=== PATIENT | male | born 1955 | race Caucasian/White ===

== ENCOUNTER 2020-03-04 07:28 | Day surgery (SDC) | payer BC, MEDICARE ==
[2020-03-01 10:00] VITALS: BP 154/93
[2020-03-01 11:11] LABS: ALANINE AMINOTRANSFERASE 42 U/L (12-78); ANION GAP 6 mmol/L (5-15); CHLORIDE 109 mmol/L (98-107); CREATININE 1.14 mg/dL (0.7-1.3)
[2020-03-01 11:13] LABS: ALKALINE PHOSPHATASE 61 U/L (45-117); BILIRUBIN,TOTAL 0.3 mg/dL (0.2-1.0); TOTAL PROTEIN 7.2 g/dL (6.4-8.2)
[~2020-03-04] VITALS: Ht 177.8 cm; Wt 113.0 kg
[~2020-03-04 07:28] MED LIST: ALBU8.5H8 INH; BUPIVACAINE/PF 0.5% ONE; BYDUREON; EPINEPHRINE 1 MG/ML, 1ML ONE; EZET10TA70 PO; FENOFIBRATE; JARDIANCE; LISINOPRIL; METFORMIN; NORTRIPTYLINE; OMEPRAZOLE
[2020-03-04] MEDS ORDERED: LACTATED RINGERS 1,000 ML IV SCH (08:00)
[2020-03-04] MEDS ORDERED: CHLORHEXIDINE 15 ML UDC MM ONE (08:00)
[2020-03-04] MEDS ORDERED: SCOPOLAMINE 1MG PATCH TD ONE ×2 (09:02→09:05)
[2020-03-04] MEDS ORDERED: ACETAMINOPHEN 500 MG TABLET PO STA (09:02)
[2020-03-04] MEDS ORDERED: ACETAMINOPHEN 500 MG TABLET ONE (09:05)
[2020-03-04] MEDS ORDERED: FENTANYL PF 250 MCG/5ML ONE (09:13)
[2020-03-04] MEDS ORDERED: MIDAZOLAM 1 MG/ML, 2ML ONE (09:13)
[2020-03-04] MEDS ORDERED: CEFAZOLIN 1,000 MG ONE (09:20)
[2020-03-04] MEDS ORDERED: NEOSTIGMINE 1 MG/ML, 10ML ONE (09:20)
[2020-03-04] MEDS ORDERED: ROCURONIUM 10 MG/ML,10ML ONE (09:20)
[2020-03-04] MEDS ORDERED: GLYCOPYRROLATE 0.2MG/1ML, 5ML ONE (09:20)
[2020-03-04] MEDS ORDERED: ONDANSETRON 2MG/ML, 2ML ONE (09:20)
[2020-03-04] MEDS ORDERED: PROPOFOL 10 MG/ML, 20ML ONE (09:20)
[2020-03-04] MEDS ORDERED: DEXAMETHASONE 4 MG/ML, 1ML ONE (09:20)
[2020-03-04] MEDS ORDERED: ONDANSETRON 2MG/ML, 2ML IVPush PRN (10:00)
[2020-03-04] MEDS ORDERED: MEPERIDINE/PF 25MG/0.5ML IVPush PRN (10:00)
[2020-03-04] MEDS ORDERED: DIPHENHYDRAMINE 50 MG/ML, 1ML IVPush PRN (10:00)
[2020-03-04] MEDS ORDERED: HYDROmorphone 1 MG/ML, 1ML INJ IVPush PRN (10:00)
[2020-03-04] MEDS ORDERED: DIAZEPAM 5 MG/ML, 2ML IVPush PRN (10:00)
[2020-03-04] MEDS ORDERED: LABETALOL 5MG/ML, 20ML IV PRN (10:00)
[2020-03-04] MEDS ORDERED: FENTANYL PF 100 MCG/2ML IV PRN (10:00)
[2020-03-04] MEDS ORDERED: OXYcodone 5 MG/5 ML ORAL.SOL UDC PO PRN (10:00)
[2020-03-04] MEDS ORDERED: PROMETHAZINE 25 MG/ML, 1ML IVPush PRN (10:00)
[2020-03-04] MEDS ORDERED: hydrALAzine 20 MG/ML, 1ML IV PRN (10:00)
[2020-03-04] MEDS ORDERED: OXYcodone 5 MG/5 ML ORAL.SOL UDC ONE (11:09)
== END 2020-03-04 13:20 | disposition home or self-care (01) ==
LOC: OUT 07:28 → EDSTATUS 09:30 → OUT 13:20
PROVIDERS: ATTEND Surgery
DX: K42.9 Umbilical hernia without obstruction or gangrene (principal); Z20.828 Contact with and (suspected) exposure to other viral communicable diseases; K66.0 Peritoneal adhesions (postprocedural) (postinfection); I10 Essential (primary) hypertension; E11.9 Type 2 diabetes mellitus without complications; E78.5 Hyperlipidemia, unspecified; J45.909 Unspecified asthma, uncomplicated; K21.9 Gastro-esophageal reflux disease without esophagitis; E66.09 Other obesity due to excess calories; F12.90 Cannabis use, unspecified, uncomplicated; Z68.36 Body mass index [BMI] 36.0-36.9, adult; Z79.84 Long term (current) use of oral hypoglycemic drugs; Z79.899 Other long term (current) drug therapy; Z87.891 Personal history of nicotine dependence; Z98.890 Other specified postprocedural states
CPT/HCPCS: 36415; 49652; 80053; 82962; 87635; 93005; C1781; J0171; J0690; J1100; J2250; J2405; J2704; J2710; J3010; J7120